=== PATIENT | male | born 1980 | race Caucasian/White ===

== ENCOUNTER → 2017-07-05 | Outpatient (CLI) | payer OTHER ==
[2017-07-05 11:03] LABS: BASO % 0.8 % (0.0-2.0); EOS # 0.1 (0.0-0.7); EOS % 1.2 % (0-4.0); GRAN # 3.2 (1.4-6.5); GRAN % 65.3 % (42.2-75.2); HEMATOCRIT 44.1 % (42.0-52.0); HEMOGLOBIN 15.3 g/dl (13.5-18.0); LYMPH # 1.3 (1.2-3.4); LYMPH % 26.6 % (20.0-51.0); MEAN CELL VOLUME 91 fl (80.0-100.0); MEAN CORPUSCULAR HEMOGLOBIN 32 pg (27.0-31.0); MEAN CORPUSCULAR HGB CONC 35 g/dl (33.0-37.0); MEAN PLATELET VOLUME 10.6 fl (7.4-10.4); MONO # 0.3 (0.1-0.6); MONO % 5.9 % (1.7-9.3); PLATELET COUNT 206 K/mm3 (130-400); RED BLOOD COUNT 4.86 M/mm3 (4.20-5.60); WHITE BLOOD COUNT 4.9 K/mm3 (4.8-10.8)
[2017-07-05 11:07] LABS: MUCOUS Present /lpf; PH 7 (5-8); SQUAMOUS EPITHELIAL None Seen /hpf; URINE APPEARANCE Clear; URINE BACTERIA None Seen /hpf; URINE BILIRUBIN Negative (NEGATIVE); URINE BLOOD Negative (NEGATIVE); URINE COLOR Yellow; URINE GLUCOSE Negative (NEGATIVE); URINE KETONE Negative (NEGATIVE); URINE LEUKOCYTE ESTERASE Negative (NEGATIVE); URINE PROTEIN(semi-quant) Negative (NEGATIVE); URINE RBC 0-2 /hpf; URINE WBC 0-2 /hpf
[2017-07-05 11:23] LABS: ADJUSTED CALCIUM 9.3 mg/dL (8.4-10.2); ALBUMIN 4.6 gm/dL (3.5-5.0); BILIRUBIN,TOTAL 0.9 mg/dL (0.0-1.0); CALCIUM 9.8 mg/dL (8.4-10.2); CHOLESTEROL RISK RATIO 4.1; CREATININE, serum 0.9 mg/dL (0.66-1.25); POTASSIUM 4.9 mmol/L (3.4-5.0); TOTAL PROTEIN 7.6 gm/dL (6.4-8.2)
[2017-07-05 11:52] LABS: THYROID STIMULATING HORMONE 3.03 uIU/mL (0.465-4.680)
[2017-07-05 13:24] LABS: COLLECTION METHOD CLEAN CATCH
== END ==
LOC: COL.RAD 10:09
PROVIDERS: Family Medicine
DX: M25.552 Pain in left hip (principal); E78.00 Pure hypercholesterolemia, unspecified; Z00.00 Encounter for general adult medical examination without abnormal findings

== ENCOUNTER → 2017-09-04 | Outpatient (CLI) | payer OTHER | LOC: COL.RAD 08:06 | DX: S73.192A Other sprain of left hip, initial encounter (principal) | CPT/HCPCS: A9585; J3301; Q9967 ==